=== PATIENT | male | born 1955 ===

== ENCOUNTER 2018-07-19 07:40 | Day surgery (SDC) | payer OTHER ==
[~2018-07-19 07:40] MED LIST: ATENOLOL25 MG PO; CRESTOR10 MG PO; ELAVIL PO; FENOFIBRATE145 MG PO; GENVOYA TABLET1 EACH PO; LANSOPRAZOLE PO; [UNRECOGNIZED DRUG - OTHER] PO
== END 2018-07-19 13:30 | disposition home or self-care (01) ==
LOC: CIR.AMB 07:40
DX: M51.36 Other intervertebral disc degeneration, lumbar region (principal)